=== PATIENT | female | born 1965 | race Caucasian/White ===

== ENCOUNTER 2019-02-20 15:08 | Emergency (ER) | payer MEDICAID ==
[~2019-02-20] VITALS: Ht 162.6 cm; Wt 65.8 kg
[2019-02-20 15:10] VITALS: Ht 162.6 cm; Wt 65.8 kg
[2019-02-20 17:35] VITALS: BP 105/65
== END 2019-02-20 17:35 | disposition home or self-care (01) ==
LOC: ED 15:08
DX: M25.561 Pain in right knee (principal); X50.1XXA Overexertion from prolonged static or awkward postures, initial encounter; Y93.89 Activity, other specified; Y92.89 Other specified places as the place of occurrence of the external cause; Y99.8 Other external cause status